=== PATIENT | female | born 1950 | race Two or more races ===

== ENCOUNTER 2020-07-15 09:50 | Emergency (ER) | payer MEDICARE, MEDICAID ==
[~2020-07-15] VITALS: Ht 147.3 cm; Wt 82.6 kg
[~2020-07-15 09:50] MED LIST: AMLO-496; ASPI81CH43; BENA40TA8; HYDR25TA4
[2020-07-15 10:21] VITALS: BP 146/76
== END 2020-07-15 11:41 | disposition home or self-care (01) ==
LOC: ER 09:50
DX: R51.9 Headache, unspecified (principal); I10 Essential (primary) hypertension; E78.5 Hyperlipidemia, unspecified; Z90.710 Acquired absence of both cervix and uterus; Z90.49 Acquired absence of other specified parts of digestive tract; Z79.82 Long term (current) use of aspirin
CPT/HCPCS: 70450